=== PATIENT | female | born 1930 | race African-American/Black ===

== ENCOUNTER 2018-07-18 08:00 | Outpatient (CLI) | payer MEDICARE, MEDICAID ==
[2018-07-18] MEDS ORDERED: Sodium Chloride 0.9% 15 ML NEB ONE (09:00)
--- NOTE | 2018-07-18 09:58 | HP ---
HISTORY OF PRESENT ILLNESS: Ms. Carlos Kolb is an 87-year-old, accompanied by her daughter, who [facility] of a sacral pressure ulceration. The patient's daughter states that she noted the presence of the wound on 05/09/2018. She states that at this time, the wound was very superficial. She states that one week later, the wound was associated with significant depth. The patient's daughter states that Ms. Kolb does not lie on her back. She states that she does, however, sit up for large portions of the day. The patient's primary care physician is Dr. Monahan. The patient is presently residing at [facility] PAST MEDICAL HISTORY: 1. Coronary artery disease. 2. Hypertension. 3. Degenerative joint disease. 4. Cardiomyopathy. 5. Peptic ulcer disease. 6. Dementia. 7. History of atrial fibrillation. 8. History of lung mass. PAST SURGICAL HISTORY: 1. Left total hip arthroplasty. 2. Cholecystectomy. 3. Cataract surgery. 4. Three surgical procedures for small bowel obstruction. MEDICATIONS: 1. Senna. 2. Pro-Stat. 3. Lisinopril. 4. Pravastatin. 5. Clonidine patch. 6. Aspirin 81 mg. 7. Amiodarone. 8. Multivitamin. 9. Levothyroxine. ALLERGIES: NO KNOWN DIAGNOSED ALLERGIES. SOCIAL HISTORY: Social history is negative for tobacco or EtOH use. FAMILY HISTORY: Family history is significant for diabetes mellitus. The patient's daughter and two sons were diagnosed with diabetes mellitus. Family history is also significant for coronary artery disease. The patient's son was diagnosed with coronary artery disease. PHYSICAL EXAMINATION: VITAL SIGNS: Temperature 98.3, pulse 57, respirations 18, blood pressure 121/58. GENERAL: A 87-year-old female, lying on stretcher in examination room, in no acute distress. HEENT: Normocephalic and atraumatic. NECK: No nuchal rigidity. CHEST: Clear to auscultation. CV: Regular rate and rhythm. ABDOMEN: Soft. EXTREMITIES: No clubbing or cyanosis. BACK: A sacral ulceration is present, which measures approximately 3.7 x 3.5 cm. The depth of the wound is approximately 2.7 cm. Granulation tissue is present within the wound margins. Nonviable tissue present within the wound margins was debrided with an excisional full-thickness debridement. No purulent drainage is associated with the wound. No erythema of the skin surrounding the wound is present. No maceration of the skin of the periwound is noted. ASSESSMENT AND PLAN: 1. Sacral pressure ulceration as described above. Plain films of the pelvis will be obtained to look for findings suggestive of osteomyelitis. Albumin and pre-albumin levels will also be obtained. Orders will be transmitted to [facility] for offloading of the sacral wound at all times. I will see Ms. Kolb again in 2 weeks. I will also discuss the treatment plan with the patient's primary care physician, Dr. Monahan. 2. Coronary artery disease. 3. Hypertension. 4. Degenerative joint disease. 5. Cardiomyopathy. 6. Peptic ulcer disease. 7. Dementia. 8. History of atrial fibrillation. 9. History of lung mass. Job ID: [id number]
== END 2018-07-18 08:01 | disposition home or self-care (01) ==
LOC: WCC 08:00
PROVIDERS: ATTEND Family Medicine
DX: L89.159 Pressure ulcer of sacral region, unspecified stage (principal); I25.10 Atherosclerotic heart disease of native coronary artery without angina pectoris; I10 Essential (primary) hypertension; M19.90 Unspecified osteoarthritis, unspecified site; I42.9 Cardiomyopathy, unspecified; K27.9 Peptic ulcer, site unspecified, unspecified as acute or chronic, without hemorrhage or perforation; F03.90 Unspecified dementia, unspecified severity, without behavioral disturbance, psychotic disturbance, mood disturbance, and anxiety; Z86.79 Personal history of other diseases of the circulatory system; R91.8 Other nonspecific abnormal finding of lung field
CPT/HCPCS: A4218

== ENCOUNTER 2018-08-08 10:45 | Outpatient (CLI) | payer MEDICARE, MEDICAID ==
--- NOTE | 2018-08-08 17:24 | PRG ---
DATE OF SERVICE: 08/08/2018 HISTORY: Ms. Carlos Kolb is an 87-year-old, again accompanied by her daughter, who presents [facility] the [facility] for evaluation of a sacral pressure ulceration. The patient's daughter previously stated that she noted the presence of the wound on 05/09/2018. She stated that at this time, the wound was very superficial. She stated that one week later, the wound was associated with significant depth. The patient's daughter stated that Ms. Kolb does not lie on her back. She stated that Ms. Kolb does, however, sit up for large portions of the day. The patient's primary care physician is Dr. Monahan. The patient continues to reside at [facility]. PHYSICAL EXAMINATION: VITAL SIGNS: Temperature 98.0, pulse 55, respirations 16, blood pressure 100/56. BACK: A sacral ulceration is present, which measures approximately 3.0 x 2.8 cm. The dimensions of the wound at the time of the patient's last visit were approximately 3.7 x 3.5 cm. The depth of the wound today is approximately 2.6 cm. The depth of the wound at the time of the patient's last visit was approximately 2.7 cm. Granulation tissue is present within the wound margins. Nonviable tissue present within the wound margins was debrided with an excisional full-thickness debridement. No purulent drainage is associated with the wound. No erythema of the skin surrounding the wound is present. No maceration of the skin of the periwound is noted. ASSESSMENT AND PLAN: 1. Sacral pressure ulceration as described above. MRI of the pelvis will be obtained to look for findings suggestive of osteomyelitis. I will see Ms. Kolb again in 3 weeks. I have discussed the treatment plan with the patient's primary care physician Dr. Monahan. 2. Coronary artery disease. 3. Hypertension. 4. Degenerative joint disease. 5. Cardiomyopathy. 6. Peptic ulcer disease. 7. Dementia. 8. History of atrial fibrillation. 9. History of lung mass. Job ID: [id number]
[2018-08-08] MEDS ORDERED: Sodium Chloride 0.9% 15 ML NEB ONE (18:00)
== END 2018-08-08 10:46 | disposition home or self-care (01) ==
LOC: WCC 10:45
PROVIDERS: ATTEND Family Medicine
DX: L89.159 Pressure ulcer of sacral region, unspecified stage (principal); I25.10 Atherosclerotic heart disease of native coronary artery without angina pectoris; I10 Essential (primary) hypertension; M19.90 Unspecified osteoarthritis, unspecified site; I42.9 Cardiomyopathy, unspecified; F03.90 Unspecified dementia, unspecified severity, without behavioral disturbance, psychotic disturbance, mood disturbance, and anxiety; K27.9 Peptic ulcer, site unspecified, unspecified as acute or chronic, without hemorrhage or perforation; Z86.79 Personal history of other diseases of the circulatory system; Z87.09 Personal history of other diseases of the respiratory system
CPT/HCPCS: 11042; A4218